=== PATIENT | female | born 1970 | race Caucasian/White ===

== ENCOUNTER 2023-07-06 03:34 | Emergency (ER) | payer OTHER ==
[~2023-07-06] VITALS: Ht 167.6 cm; Wt 68.0 kg
[2023-07-06 03:46] VITALS: BP 140/78; PULSE 89; RESP 16; TEMP 98; O2SAT 100
[2023-07-06] MEDS ORDERED: ONDANSETRON 4 MG ODT PO ONE (04:20)
[2023-07-06] MEDS ORDERED: DICYCLOMINE HCL LIQUID 20 MG, ALUMINUM HYD/MAG/SIMETHICONE 30 ML, LIDOCAINE VISCOUS 2% ... PO ONE ×3 (04:20)
[2023-07-06] MEDS ORDERED: ALUMINUM HYD/MAG/SIMETHICONE 30 ML UDC ONE (04:25)
[2023-07-06] MEDS ORDERED: DICYCLOMINE HCL LIQUID 10 MG/5 ML UDC ONE (04:25)
[2023-07-06 04:45] VITALS: BP 140/78; PULSE 89; RESP 16; TEMP 98; O2SAT 100
== END 2023-07-06 04:45 | disposition left against medical advice (07) ==
LOC: MED 03:34
DX: R10.13 Epigastric pain (principal); F41.9 Anxiety disorder, unspecified
CPT/HCPCS: 99283; Q0162